=== PATIENT | male | born 1995 | race African-American/Black ===

== ENCOUNTER 2023-02-08 06:12 | Day surgery (SDC) | payer BC ==
[2023-02-07 12:25] VITALS: BMI 25.8
[2023-02-08 09:09] VITALS: TEMP 97.8
[2023-02-08 10:32] VITALS: BP 128/73; PULSE 60; RESP 17
== END 2023-02-08 10:17 | disposition home or self-care (01) ==
LOC: JASU-ENDO 06:12
PROVIDERS: ATTEND Internal Medicine Gastroenterology
PROC: 0DJD8ZZ Inspection of Lower Intestinal Tract, Via Natural or Artificial Opening Endoscopic (ICD-10-PCS; principal; 2023-02-08 09:15)
DX: K64.8 Other hemorrhoids (principal)